=== PATIENT | female | born 1930 | race Caucasian/White ===

== ENCOUNTER 2019-06-02 05:09 | Inpatient (IN) ==
--- NOTE | 2019-05-04 12:07 | PAT Medication Instructions ---
Medication Instructions Date of Service May 04, 2019 Home Medications citalopram 10 mg PO QAM levothyroxine 50 mcg PO 3XWK levothyroxine 75 mcg PO 4XWK metoprolol succinate 25 mg PO QAM simvastatin 40 mg PO HS aspirin [Aspir-81] 81 mg PO QPM vitamins A,C,A-dcjl-ayjyah [PreserVision AREDS] 1 tab PO DAILY STOP taking 2 weeks before surgery (or as soon as possible if surgery is within 2 weeks) vitamins A,C,C-crjl-cojlpi [PreserVision AREDS] 1 tab PO DAILY Take morning of surgery With a small sip of water, OTHERWISE NOTHING TO EAT OR DRINK AFTER MIDNIGHT: citalopram 10 mg PO QAM levothyroxine metoprolol succinate 25 mg PO QAM Take evening before surgery simvastatin 40 mg PO HS aspirin [Aspir-81] 81 mg PO QPM Other Notes If you have any questions please call us at [phone] or [phone] or [phone] or [phone]
--- NOTE | 2019-05-05 15:00 | Anesthesiology Consultation ---
Date of Service May 05, 2019 Assessment & Plan (1) Encounter for pre-operative examination: Chart Review Chart Review: Acceptable Risk for Surgery (pending surgeon ordered pcp clearance 05/07) and Patient seen in Pre Admission Testing Teaching & Discussion Instructed NPO after midnight before surgery, except medications with 15 cc of water. Medication instructions provided according to the PAT guidelines. History Surgery Operation Date: 06/01/19 12:00 Proposed Procedures p Left Total Knee Arthroplasty - Onur Cox MD Height/Weight Height: 5 ft 1 in Weight: 73.1 kg Allergies Allergy/AdvReac Type Severity Reaction Status Date / Time No Known Allergies Allergy Verified 04/30/19 11:49 Medications Home Medications Medication Instructions Recorded Confirmed Last Taken citalopram 10 mg PO QAM 12/06/17 04/30/19 01/08/18 03:00 levothyroxine 50 mcg PO 3XWK 12/06/17 04/30/19 01/08/18 03:00 levothyroxine 75 mcg PO 4XWK 12/06/17 04/30/19 01/07/18 07:00 metoprolol succinate 25 mg PO QAM 12/06/17 04/30/19 01/08/18 03:00 simvastatin 40 mg PO HS 12/06/17 04/30/19 01/07/18 23:30 aspirin [Aspir-81] 81 mg PO QPM 04/30/19 04/30/19 Unknown vitamins A,C,D-evea-regkhm 1 tab PO DAILY 04/30/19 04/30/19 Unknown [PreserVision AREDS] Past Medical History Medical History (Updated 05/05/19 @ 15:01 by Gavin Klein) Cancer HX OF MELANOMA RIGHT ARM - RESECTED Depression Hearing deficit WEARING HEARING AIDS History of chest pain 2 YR AGO, PAIN LEFT ARM AND JAW - ED EVAL ([facility]) - MEDICAL STRESS - NO FINDINGS. DENIES ANY CP SINCE. Hyperlipidemia Hypertension Hypothyroidism Osteoarthritis Exercise / Class Metabolic Activity II 4-5 Yardwork/Stairs/Walk up hill (Does 1 FOS daily, no CP or SOB.) Past Surgical History Surgical History (Updated 05/05/19 @ 15:02 by Gavin Klein) History of cataract surgery BILATERAL History of colonoscopy X3 History of hysterectomy History of thyroidectomy, subtotal LEFT SIDE Hx of thyroid nodule SURGICALLY REMOVED Nausea and vomiting after administration of anesthetic agent S/P carpal tunnel release HX OF : LEFT Status post right knee replacement [facility] Past Anesthesia History No Hx of Anesthesia Complications and No Family Hx of Anesthesia Complications (daughter ROSALVA) History of PONV No Hx of Motion Sickness and History of PONV (many years ago, not with more recent) Social History Smoking Status: Never smoker Do You Dip or Chew Tobacco: No Hx Alcohol Use: No Hx Substance Use: No substance use type: does not use Review of Systems Pt denies any recent chest pain, shortness of breath, palpitations, cough, fever or URI. Physical Exam Vital Signs BP: 178/88, rpt with smaller cuff 191/95. Pt is very anxious. Rpt manual 5mins later 158/68. P: 93bpm SPO2: 97% RA T: 98.0 F R: 16 ENMT Mouth: + small oral opening; no dental restorations, no chipped teeth and no loose teeth Thyromental Distance: < 3.5 Finger Breadths (2.5) Mallampati Class: IV Neck normal visual inspection; neck extension not limited Respiratory normal respiratory effort Auscultation: lungs clear to auscultation bilaterally Cardiovascular Rate/Rhythm: regular rate and regular rhythm Heart Sounds: + murmur (I/ systolic) Testing Laboratory Results 05/05/19 15:20 05/05/19 15:20 PT 10.6 Seconds (9.0-12.0) 05/05/19 15:20 INR 1.0 (0.9-1.1) 05/05/19 15:20 APTT 27.3 Seconds (21.0-31.0) 05/05/19 15:20 Hemoglobin A1c 5.7 % (4.5-5.6) H 05/05/19 15:20 Urine Color Yellow 05/05/19 15:20 Urine Appearance Cloudy (Clear) A 05/05/19 15:20 Urine pH 6.0 (4.5-7.5) 05/05/19 15:20 Ur Specific [place] 1.013 (1.000-1.030) 05/05/19 15:20 Urine Protein Negative (Negative) 05/05/19 15:20 Urine Glucose (UA) Negative (Negative) 05/05/19 15:20 Urine Ketones Negative (Negative) 05/05/19 15:20 Urine Nitrite Negative (Negative) 05/05/19 15:20 Ur Leukocyte Esterase 3+ (Negative) H 05/05/19 15:20 Urine WBC (Auto) >30 /hpf (0-5) H 05/05/19 15:20 Urine RBC (Auto) 5-10 /hpf (0-4) H 05/05/19 15:20 U Hyaline Cast (Auto) 1-5 /lpf (0-5) 05/05/19 15:20 U Epithel Cells (Auto) 20-30 /lpf (0-5) H 05/05/19 15:20 Urine Bacteria (Auto) Negative (Negative) 05/05/19 15:20 Blood Type B Negative 05/05/19 15:20 Antibody Screen NEGATIVE 05/05/19 15:20 05/05/19 15:20 Urine Culture - Preliminary Urine,Clean Catch Pin-point growth present, reincubating. Electrocardiogram Findings: + NSR @ (66bpm) LAFB. No significant change from 12/10/17 EKG. Chest X-Ray Date: 05/05/19 Findings: + NAD Cardiomegaly.
[2019-05-05 15:45] LABS: Basophils # (auto) 0.04 K/uL (0-0.2); Basophils % (auto) 0.9 %; Eosinophils # (auto) 0.16 K/uL (0-0.5); Eosinophils % (auto) 3.4 %; Hematocrit (blood only) 42.7 % (37-47); Hemoglobin 14.1 g/dL (12.0-16.0); Immature Granulocytes # (auto) 0.01 K/uL (0.00-0.02); Immature Granulocytes % (auto) 0.2 %; Lymphocytes # (auto) 0.96 K/uL (1.2-3.4); Lymphocytes % (auto) 20.6 %; Mean Corpuscular Hemoglobin 30.5 pg (25-34); Mean Corpuscular Volume 92.2 fL (80-100); Mean Platelet Volume 11.3 fL (7.4-10.4); Monocytes # (auto) 0.39 K/uL (0.11-0.59); Monocytes % (auto) 8.4 %; Neutrophils % (auto) 66.5 %; Platelet Count 182 K/uL (130-400); RDW Coefficient of Variation 12.7 % (11.5-14.5); RDW Standard Deviation 42.4 fL (36.4-46.3); Red Blood Count 4.63 M/uL (4.2-5.4); White Blood Count 4.66 K/uL (4.8-10.8)
--- NOTE | 2019-05-05 15:46 | XRay Report ---
TWO VIEW CHEST CLINICAL HISTORY: Preoperative examination. FINDINGS: PA and lateral chest radiographs are compared to study dated 12/10/2017. The heart is enlarg ed noting atherosclerotic calcification of the thoracic aorta. The pulmonary vasculature is nonconges layo. Chronic interstitial thickening is similar to previous. No airspace consolidation or pleural eff usion is identified. There is no pneumothorax. The skeletal structures are osteopenic. The bony thora x appears intact. Degenerative change is noted in the lower cervical and thoracic spine. IMPRESSION: Cardiomegaly with no active disease in the chest. ACT 112: Negative or not required by law. Electronically signed by: Lane Machado M.D. 05/05/2019 3:45 PM
[2019-05-05 16:06] LABS: Albumin Level 3.7 gm/dl (3.4-5.0); BUN Creatinine Ratio 13.7 (10-20); Calcium 9.1 mg/dl (8.5-10.1); Creatinine Clr Calc Pharmacy 37.8 ml/min; Est GFR (African American) 61.6; Est GFR (Non-African American) 53.2; Potassium 4.1 mmol/L (3.5-5.1)
[2019-05-05 16:07] LABS: Partial Thromboplastin Time 27.3 Seconds (21.0-31.0); Prothrombin Time 10.6 Seconds (9.0-12.0)
[2019-05-05 16:38] LABS: Appearance Urine Cloudy (Clear); Bacteria Urine Automated Negative (Negative); Bilirubin Urine Negative (Negative); Blood Urine Trace (Negative); Color Urine Yellow; Epithelial Cell Urine Auto 20-30 /lpf (0-5); Glucose Urine UA Negative (Negative); Ketones Urine Negative (Negative); Leukocyte Esterase Urine 3+ (Negative); Nitrite Urine Negative (Negative); Protein Urine Negative (Negative); Specific Gravity Urine 1.013 (1.000-1.030); Urobilinogen Urine Negative (Negative); WBC Urine Automated >30 /hpf (0-5)
--- NOTE | 2019-05-05 22:17 | Electrocardiogram Report ---
Test Reason : Blood Pressure : / mmHG Vent. Rate : 066 BPM Atrial Rate : 066 BPM P-R Int : 204 ms QRS Dur : 108 ms QT Int : 438 ms P-R-T Axes : 086 -60 072 degrees QTc Int : 459 ms Normal sinus rhythm Left anterior fascicular block Abnormal ECG When compared with ECG of 10-DEC-2017 13:03, No significant change was found Confirmed by Fabrizio Jackson ([id number]) on 05/05/2019 10:17:41 PM Referred By: Onur Cox Confirmed By:Fabrizio Jackson
[2019-05-06 06:24] LABS: Estimated Average Glucose 117 mg/dl; Hemoglobin A1C 5.7 % (4.5-5.6)
--- NOTE | 2019-06-01 18:52 | History and Physical Report ---
DATE OF ADMISSION: 06/02/2019 CHIEF COMPLAINT: Chronic left knee pain. HISTORY OF PRESENT ILLNESS: This is an 88-year-old female patient of Dr. Cox'mirna complaining of chronic left knee pain, longstanding, now progressively getting worse. The patient has failed conservative treatment including intra-articular injections, anti-inflammatories, home exercise program and the use of a wrap. The patient has increased pain with weightbearing activities and her pain does interfere with her activities of daily living. The patient has been diagnosed with end-stage osteoarthritis per clinical and radiographic exams and wishes to proceed with an elective left total knee arthroplasty. PAST MEDICAL HISTORY: Hypertension, hypercholesterolemia, hypothyroidism, osteoarthritis, sciatica, history of melanoma. SOCIAL HISTORY: Nonsmoker, nondrinker. PAST SURGICAL HISTORY: Partial hysterectomy, thyroid nodules, thyroidectomy, carpal tunnel. FAMILY HISTORY: Noncontributory. REVIEW OF SYSTEMS: The patient complains of chronic left knee pain, otherwise denies any shortness of breath, chest pain, nausea, vomiting or any other joint complaints. MEDICATIONS: Aspirin 81 mg daily, levothyroxine 50 mcg daily, simvastatin 40 mg daily, levothyroxine, again 75 mcg 4 times weekly, metoprolol 25 mg daily, Lexapro 10 mg daily, PreserVision daily. ALLERGIES: No known drug allergies. PHYSICAL EXAMINATION: GENERAL: Well-developed, well-nourished 88-year-old female in no acute distress. She is alert and oriented x3 and pleasant. HEENT: Normocephalic, atraumatic. Extraocular motions are intact. Pupils equal, reactive to light. HEART: Regular rate and rhythm, no murmurs. LUNGS: Clear. ABDOMEN: Soft, nontender, bowel sounds present. EXTREMITIES: Left knee limited range of motion of 0-125. Mild effusion. Medial joint line tenderness, varus deformity, crepitation with passive range of motion, 5/5 strength. NEUROLOGIC: Neurovascularly, she is intact in her left lower extremity. DIAGNOSES: Left knee end-stage osteoarthritis, hypertension, hypercholesterolemia, hypothyroidism, osteoarthritis, sciatica, history of melanoma. PLAN: The patient was advised of her diagnosis. Indications, risks, benefits, postop course have all been reviewed. The patient wished to proceed with a left total knee arthroplasty. Necessary consent forms, preoperative testing and clearances will be obtained.
[~2019-06-02 05:09] MED LIST: ACETAMINOPHEN 500 MG TAB PO SCH; CEFAZOLIN 1000MG 1,000 MG/7.5 ML SYR IV SCH; CeleBREX 200 MG CAP PO SCH; FAMOTIDINE 20 MG TAB PO SCH; GABAPENTIN 300 MG CAP PO SCH; LR 500ML BOLUS, THEN 15ML/HR IV SCH; METOCLOPRAMIDE HCL 10 MG TABLET PO SCH; ROPIVACAINE 0.5% HCL/PF 150 MG, BUPIVACAINE 0.5% MPF 30 ML, EPINEPHrine 30MG/30ML (OR U... INSTIL SCH; TRANEXAMIC ACID 1,000 MG **IV Intra-op IV SCH; TRANEXAMIC ACID 1,000 MG **IV Pre-op IV SCH; dexAMETHasone 4 MG TAB PO SCH
[2019-06-02] MEDS ORDERED: dexAMETHasone 4 MG TAB PO SCH (06:00)
[2019-06-02] MEDS ORDERED: LR 500ML BOLUS, THEN 15ML/HR IV SCH (06:00)
[2019-06-02] MEDS ORDERED: TRANEXAMIC ACID 1,000 MG **IV Intra-op IV SCH (06:00)
[2019-06-02] MEDS ORDERED: ROPIVACAINE 0.5% HCL/PF 150 MG, BUPIVACAINE 0.5% MPF 30 ML, EPINEPHrine 30MG/30ML (OR U... INSTIL SCH (06:00)
[2019-06-02] MEDS ORDERED: METOCLOPRAMIDE HCL 10 MG TABLET PO SCH (06:00)
[2019-06-02] MEDS ORDERED: TRANEXAMIC ACID 1,000 MG **IV Pre-op IV SCH (06:00)
[2019-06-02] MEDS ORDERED: ACETAMINOPHEN 500 MG TAB PO SCH (06:00)
[2019-06-02] MEDS ORDERED: CEFAZOLIN 1000MG 1,000 MG/7.5 ML SYR IV SCH (06:00)
[2019-06-02] MEDS ORDERED: FAMOTIDINE 20 MG TAB PO SCH (06:00)
[2019-06-02] MEDS ORDERED: GABAPENTIN 300 MG CAP PO SCH (06:00)
[2019-06-02] MEDS ORDERED: CeleBREX 200 MG CAP PO SCH (06:00)
[2019-06-02] MEDS ORDERED: MIDAZOLAM HCL 1 MG/ML 2ML VIAL ONE (06:56)
[2019-06-02] MEDS ORDERED: fentaNYL citrate 100 MCG/2 ML VIAL ONE (06:56)
[2019-06-02] MEDS ORDERED: ATROPINE SULFATE 0.1 MG/ML 10ML SYR IV PRN (07:03)
[2019-06-02] MEDS ORDERED: ePHEDrine sulfate 50 MG/ML AMP IV PRN (07:03)
[2019-06-02] MEDS ORDERED: fentaNYL citrate 100 MCG/2 ML VIAL IV PRN (07:03)
[2019-06-02] MEDS ORDERED: ONDANSETRON INJ 2 MG/ML 2 ML VIAL IV PRN ×2 (07:03→10:51)
--- NOTE | 2019-06-02 07:11 | History & Physical Bridge Note ---
Date of Service June 02, 2019 History & Physical Bridge Note I have examined the patient, reviewed the History & Physical and in the interval since the performance of the History & Physical I have noted the following changes of clinical significance: no changes noted
[2019-06-02] MEDS ORDERED: ORTHO JOINT ANESTHETIC ONE (07:13)
[2019-06-02] MEDS ORDERED: BACITRACIN INJ 50,000 UNIT VIAL ONE (07:14)
[2019-06-02] MEDS ORDERED: ROPIVACAINE 0.5% 5 MG/ML 30 ML VIAL ONE (07:47)
[2019-06-02] MEDS ORDERED: BUPIVACAINE 0.5 % 5 MG/1 ML PF 10ML VIAL ONE (07:47)
--- NOTE | 2019-06-02 09:07 | Operative Report ---
Post Operative Report Pre & Post Diagnosis Operation Date: 06/02/19 07:15 Pre-Op Diagnosis: LEFT KNEE OSTEOARTHRITIS Post-Op Diagnosis: LEFT KNEE OSTEOARTHRITIS I identified the patient and participated in the time-out.: Yes Procedure Operation Date: 06/02/19 07:15 Actual Procedures p Left Total Knee Arthroplasty(Left) - Onur Cox MD Surgeon Onur Cox MD Deburrer Machine Inocencio KIRKLAND Estimated Blood Loss 5 Findings Consistent with Post-Op Diagnosis Specimens Bone cuts Drains 2 Hemovac Anesthesia Type MAC Spinal Regional Complications none Disposition Accompanied Patient To Recovery: No Disposition: Recovery Room Indications 88-year-old female with progressive pain disability due to osteoarthritis her left knee. She had a right knee replaced in the past with good result. Patient is failed conservative management with regard to left knee. Proceed with left knee replacement. Description of Procedure The patient was taken to the operating room and anesthetized under spinal MAC regional. Patient was placed supine on the the operating table. A pneumatic tourniquet was placed about the left upper thigh. The knee exam demonstrated 10 through 115 degrees range of motion stiff knee tight varus medial compartment. The involved leg was elevated exsanguinated with Esmarch bandage and the pneumatic tourniquet was raised to 300 millimeters mercury. A longitudinal incision was made across the anterior knee. Skin flaps were elevated. An incision was made into the medial retinaculum and extended up into the mid third of the quadriceps tendon and extended down to the tibial tubercle. Intra- articular findings demonstrated patellofemoral medial compartment OA [id number] medial compartment. The knee was exposed by excising cruciate ligaments and menisci. The infrapatellar fat pad was resected. The fat pad over the anterior femur at the upper aspect of the articular surface was resected for placement of the component in that area. A subperiosteal peel lateral release was performed around the patella The [employer] journey 2.0 posterior stabilized total knee arthroplasty system was utilized for the procedure. The custom femoral cutting guide was pinned in position. The distal femoral cut was made. The size 4, 5 in 1 cutting block was placed. The anterior posterior and chamfer cuts were made. The knee was extended and a free hand cut technique was performed to the patella. The patella with was measured and the width was reproduced using a 32 symmetrical patella component. 3 drill holes are made for the patella component pegs. The tibia was then subluxed. The custom tibial cutting block was pinned in position and the proximal tibial cut was made with the oscillating saw. Ligaments were balanced requiring medial posterior medial release and pie crusting MCL. The size 2 tibial trial was externally rotated in line with the tibial tubercle and pinned in position. The punch for the stem was used. The femoral trial was inserted and centered the notch cutting devices were used and the collet was placed. Tibial trials were used for the insert. The size 12 trial gave balanced ligaments through full range of motion. Patella tracking was assessed with range of motion. The patella tracked centrally. The trials were removed. The Orthomix anesthetic cocktail was injected per protocol. The cut bone surfaces and soft tissue were copiously irrigated with antibiotic solution with bacitracin. The final components were cemented with Simplex cement. The final components were [employer] journey 2.0 left size 4 posterior stabilized femoral component, 2 tibial baseplate, 12 posterior stabilized polyethylene insert, 32 symmetrical patella.. While the cement cured the Betadine soak was used per protocol. When the cement cured the knee was copiously irrigated with pulsatile lavage antibiotic solution with bacitracin. 2 drains were brought out laterally connected to Hemovac. The quadriceps tendon and medial retinaculum were closed with interrupted [id number] #1 Vicryl sutures. The knee was taken through full range of motion and repair was secure. The subcutaneous tissues were closed with 2-0 Vicryl sutures. The skin was closed with nina. A sterile dressing was applied. The tourniquet was let down and the patient had good capillary refill to the extremity. The patient tolerated the procedure well. My physician assistant film editor Inocencio KIRKLAND assisted in the procedure including prepping draping leg positioning soft tissue retraction instrument management and assisted in the closure ,dressings application and will participate in postoperative care the patient. I attest to the content of the Intraoperative Record and any orders documented therein. Any exceptions are noted below.
[2019-06-02] MEDS ORDERED: PROPOFOL IV EMULSION 10 MG/ML 20 ML VIAL IV ONE (09:35)
[2019-06-02] MEDS ORDERED: LIDOCAINE HCL 2% 2 ML VIAL/AMP(20MG/ML) INFIL ONE (09:35)
--- NOTE | 2019-06-02 09:58 | Anesthesiology Progress Note ---
Date of Service June 02, 2019 Anesthesia Post Procedure Vital Signs Vital Signs: Temp Pulse Pulse Resp BP Pulse Ox 06/02/19 09:50 68 16 190/79 H 99 06/02/19 09:40 71 16 163/74 H 100 06/02/19 09:31 37.0 C 75 16 173/70 H 99 06/02/19 06:04 37 C 52 L 18 214/92 H 98 Transfer of Care Handoff Completed per policy Notes Mental Status: alert / awake / arousable Patient Amnestic to Procedure: Yes Nausea / Vomiting: adequately controlled Pain: adequately controlled Airway Patency, RR, SpO2: stable & adequate BP & HR: stable & adequate Hydration State: stable & adequate Neuraxial Anesthesia: was administered and sensory block is resolving Anesthetic Complications: no major complications apparent
--- NOTE | 2019-06-02 10:08 | XRay Report ---
XR knee LT 1 or 2V routine CLINICAL HISTORY: Surgical Post Op COMPARISON: None. DISCUSSION: Anatomic alignment posttotal left knee arthroplasty. Could contact between prosthetic and underlying bone. Surgical drains are in position. IMPRESSION: Anatomic alignment posttotal left knee arthroplasty. ACT 112: Negative or not required by law. The above report was generated using voice recognition software. It may contain grammatical, syntax or spelling errors. Electronically signed by: Edson Yee M.D. 06/02/2019 10:07 AM
[2019-06-02] MEDS ORDERED: NALOXONE HCL 0.4 MG/1 ML VIAL/CARP IV PRN (10:51)
[2019-06-02] MEDS ORDERED: HYDROmorphone INJ 0.5 MG/0.5 ML SYR IV PRN (10:51)
[2019-06-02] MEDS ORDERED: MAGNESIUM HYDROXIDE SUSP 30 ML UDC PO PRN (10:51)
[2019-06-02] MEDS ORDERED: bisacodyL 10 MG SUPP PR PRN (10:51)
[2019-06-02] MEDS: LEVOTHYROXINE SODIUM 75 MCG TABLET PO SCH (11:23)
[2019-06-02] MEDS: SODIUM CHLORIDE 0.9% 1000ML 1,000 ML IV SCH ×2 (11:23→22:12)
--- NOTE | 2019-06-02 12:58 | Hospitalist Consultation ---
Date of Consultation June 02, 2019 Assessment & Plan (1) Left knee DJD: S/p left knee TKA with Dr. Cox on 06/01. - No surgical complications. EBL was only 5 mL per operative note. Continue iron supplement. - Monitor hgb, pt at risk for acute blood loss anemia. - Post-operative care per primary team (2) Hypertension: On metoprolol at home. BP is 165/55 post-operatively. - Continue beta-vinayak - Monitor (3) Hypothyroidism: No TSH in our system; however, no indication of hypo-/hyperthyroidism. - Continue home levothyroxine (4) DVT prophylaxis: ASA 81mg PO BID per primary team History of Present Illness Attending Physician: Onur Cox MD History of Present Illness 88yo F w/ hx of HTN, hypothyroidism, & depression who presents as a medical consult after left knee TKA with Dr. Cox on 06/01. Overall, the patient is very drowsy from her anesthesia at this point. She is in no acute pain and denies shortness of breath. Surgery was uncomplicated per notes. Reports no fevers/chills, chest pain, shortness of breath, abdominal pain, nausea, or vomiting. Allergies Allergy/AdvReac Type Severity Reaction Status Date / Time No Known Allergies Allergy Verified 06/02/19 05:40 Home Medications Home Medications Medication Instructions Recorded Confirmed Type citalopram 10 mg PO QAM 12/06/17 06/02/19 History levothyroxine 50 mcg PO 3XWK 12/06/17 06/02/19 History levothyroxine 75 mcg PO 4XWK 12/06/17 06/02/19 History metoprolol succinate 25 mg PO QAM 12/06/17 06/02/19 History simvastatin 40 mg PO HS 12/06/17 06/02/19 History aspirin [Aspir-81] 81 mg PO QPM 04/30/19 06/02/19 History vitamins A,C,N-lojs-ihsmqg 1 tab PO DAILY 04/30/19 06/02/19 History [PreserVision AREDS] Patient History Medical History Cancer HX OF MELANOMA RIGHT ARM - RESECTED Depression Hearing deficit WEARING HEARING AIDS History of chest pain 2 YR AGO, PAIN LEFT ARM AND JAW - ED EVAL ([facility]) - MEDICAL STRESS - NO FINDINGS. DENIES ANY CP SINCE. Hyperlipidemia Hypertension Hypothyroidism Osteoarthritis Surgical History History of cataract surgery BILATERAL History of colonoscopy X3 History of hysterectomy History of thyroidectomy, subtotal LEFT SIDE Hx of thyroid nodule SURGICALLY REMOVED Nausea and vomiting after administration of anesthetic agent S/P carpal tunnel release HX OF : LEFT Status post right knee replacement [facility] Family History Mother Family history of diabetes mellitus Social History Preferred Language: [place] Verde[place] Communication Ability: Effective Clinical Research Tech Required: No Beliefs That Will Affect Care: None marital status: / Current Living Situation: Alone Other Information That Helps Us Care for You: No Feels Safe at Home: Yes Smoking Status: Never smoker Do You Dip or Chew Tobacco: No ; Hx Alcohol Use: No Hx Substance Use: No Review of Systems Review of Systems: All systems reviewed & are unremarkable except as noted in HPI & below Physical Exam Constitutional: WD/WN, vitals as above Eyes: EOM intact bilaterally; no conjunctival abnormality ENMT: external ear and nose normal, oropharynx normal Neck: trachea midline, no thyromegaly normal visual inspection Respiratory: normal respiratory effort, lungs clear to auscultation no respiratory distress Cardiovascular: RRR, no murmur, no edema Gastrointestinal (Abdomen): Inspection/Auscultation: abdomen normal to inspection; abdomen not distended Musculoskeletal: no cyanosis or clubbing, extremities motor strength 5/5 E xtremities: + extremities abnormal to inspection (Left knee bandage) Skin: no rashes, warm and dry Neurologic: moves all extremities and awake Psychiatric: Orientation: alert, oriented to person and cooperative Results & Data ([facility]) Vital Signs (Past 12 Hours) Vital Signs Temp Pulse Pulse Pulse Resp BP Pulse Ox 06/02/19 12:43 36.1 C L 65 16 164/55 H 99 06/02/19 11:42 62 16 154/70 H 98 06/02/19 11:08 65 16 150/73 H 97 06/02/19 10:40 36.4 C L 69 16 171/75 H 95 06/02/19 10:20 36.4 C L 67 15 188/77 H 99 06/02/19 10:10 68 16 186/78 H 98 06/02/19 10:00 70 16 188/74 H 99 06/02/19 09:50 68 16 190/79 H 99 06/02/19 09:40 71 16 163/74 H 100 06/02/19 09:31 37.0 C 75 16 173/70 H 99 06/02/19 06:04 37 C 52 L 18 214/92 H 98 PG Care Time/CCT Total # of Minutes Spent Total Time Spent with Patient: Total time spent is greater than 50% in coordination of care (as documented) at patient's floor/unit and/or counseling patient: Coding Level of Care Code 21900 Inpt Consult Level 3 Diagnoses Left knee DJD M17.12 Hypertension I10 Hypothyroidism E03.9 DVT prophylaxis Z29.9
[2019-06-02] MEDS: ACETAMINOPHEN 500 MG TAB PO SCH ×2 (13:10→21:44)
[2019-06-02] MEDS: CEFAZOLIN 2000MG 2,000 MG/15 ML SYR IV SCH ×2 (15:35→23:58)
[2019-06-02] MEDS: FERROUS GLUCONATE 324 MG TAB PO SCH (17:48)
[2019-06-02] MEDS ORDERED: SIMVASTATIN 40 MG TAB PO SCH (21:00)
[2019-06-02] MEDS: SENNA 8.6 MG TAB PO SCH (21:43)
[2019-06-02] MEDS: DOCUSATE SODIUM 100 MG CAP PO SCH (21:44)
[2019-06-02] MEDS: ASPIRIN 81 MG ECTAB PO SCH (21:44)
[2019-06-03] MEDS: METOPROLOL SUCC 25MG EXT REL TAB PO SCH (03:02)
[2019-06-03] MEDS: ACETAMINOPHEN 500 MG TAB PO SCH ×3 (05:06→21:22)
[2019-06-03] MEDS: LEVOTHYROXINE SODIUM 50 MCG TABLET PO SCH (05:07)
[2019-06-03 05:47] LABS: Hemoglobin 12.7 g/dL (12.0-16.0); Mean Corpuscular Hemoglobin 30.5 pg (25-34); Mean Corpuscular Hgb Conc 33.4 g/dL (32-36); Mean Corpuscular Volume 91.1 fL (80-100); Mean Platelet Volume 11.6 fL (7.4-10.4); Platelet Count 172 K/uL (130-400); RDW Coefficient of Variation 12.8 % (11.5-14.5); RDW Standard Deviation 42.1 fL (36.4-46.3); Red Blood Count 4.17 M/uL (4.2-5.4); White Blood Count 11.72 K/uL (4.8-10.8)
[2019-06-03 06:17] LABS: BUN Creatinine Ratio 19.3 (10-20); Creatinine Clr Calc Pharmacy 33.4 ml/min; Est GFR (African American) 52.9; Est GFR (Non-African American) 45.6; Potassium 3.8 mmol/L (3.5-5.1)
[2019-06-03] MEDS: HydrALAZINE HCL 20 MG/ML VIAL IV PRN (08:17)
[2019-06-03] MEDS: FERROUS GLUCONATE 324 MG TAB PO SCH ×2 (08:54→17:55)
[2019-06-03] MEDS: CITALOPRAM 20 MG TAB PO SCH (08:54)
[2019-06-03] MEDS: MULTIVITAMIN TAB PO SCH (08:54)
[2019-06-03] MEDS: ASPIRIN 81 MG ECTAB PO SCH ×2 (08:54→20:18)
[2019-06-03] MEDS: DOCUSATE SODIUM 100 MG CAP PO SCH ×2 (09:45→20:19)
--- NOTE | 2019-06-03 09:55 | Orthopedic Progress Note ---
Date of Service June 03, 2019 Assessment & Plan (1) Left knee DJD: Postop day 1 status post left total knee arthroplasty. PT/OT protocols. Weightbearing as tolerated. DVT prophylaxis with aspirin p.o. twice daily, SCDs To new current pain regimen. Discharge planning-patient is planning on going to [facility] swing bed unit for physical therapy. Discussed with case management. Patient will need a 3 night stay. Plan for discharge on Saturday. Admission and Anticipated Discharge Date Admission Date: June 02, 2019 Subjective Patient sitting up in her chair at the bedside. She feels well today and is anxious to start her PT. She is having some mild pain over the anterolateral aspect of her thigh near where the drain is likely located. No other complaints. Denies shortness of breath, chest pain, lightheadedness. Physical Exam Physical Exam: Dressings are clean, dry, and intact. Calves are soft nontender. Neurovascular is intact. She has good dorsiflexion and plantarflexion of her left foot. Hemovac drainage was 125 mL from the previous shift. Results & Data ([facility]) Vital Signs (Past 12 Hours) Vital Signs Temp Pulse Resp BP BP Pulse Ox 06/03/19 09:19 157/55 H 06/03/19 07:50 36.8 C 58 L 18 202/67 H 95 06/03/19 05:50 189/71 H 06/03/19 02:42 36.6 C 58 L 18 189/70 H 95 06/02/19 23:04 36.8 C 67 18 171/73 H 95 Laboratory Results Laboratory Results WBC 11.72 K/uL (4.8-10.8) H 06/03/19 05:00 RBC 4.17 M/uL (4.2-5.4) L 06/03/19 05:00 Hgb 12.7 g/dL (12.0-16.0) 06/03/19 05:00 Hct 38.0 % (37-47) 06/03/19 05:00 MCV 91.1 fL (80-100) 06/03/19 05:00 MCH 30.5 pg (25-34) 06/03/19 05:00 MCHC 33.4 g/dL (32-36) 06/03/19 05:00 RDW Std Deviation 42.1 fL (36.4-46.3) 06/03/19 05:00 RDW Coeff of Viktor 12.8 % (11.5-14.5) 06/03/19 05:00 Plt Count 172 K/uL (130-400) 06/03/19 05:00 MPV 11.6 fL (7.4-10.4) H 06/03/19 05:00 Immature Gran % (Auto) 0.2 % 05/05/19 15:20 Neut % (Auto) 66.5 % 05/05/19 15:20 Lymph % (Auto) 20.6 % 05/05/19 15:20 [place] % (Auto) 8.4 % 05/05/19 15:20 Eos % (Auto) 3.4 % 05/05/19 15:20 Baso % (Auto) 0.9 % 05/05/19 15:20 Immature Gran # (Auto) 0.01 K/uL (0.00-0.02) 05/05/19 15:20 Neut # (Auto) 3.10 K/uL (1.4-6.5) 05/05/19 15:20 Lymph # (Auto) 0.96 K/uL (1.2-3.4) L 05/05/19 15:20 [place] # (Auto) 0.39 K/uL (0.11-0.59) 05/05/19 15:20 Eos # (Auto) 0.16 K/uL (0-0.5) 05/05/19 15:20 Baso # (Auto) 0.04 K/uL (0-0.2) 05/05/19 15:20 PT 10.6 Seconds (9.0-12.0) 05/05/19 15:20 INR 1.0 (0.9-1.1) 05/05/19 15:20 APTT 27.3 Seconds (21.0-31.0) 05/05/19 15:20 PTT Ratio 1.0 05/05/19 15:20 Sodium 140 mmol/L (136-145) 06/03/19 05:00 Potassium 3.8 mmol/L (3.5-5.1) 06/03/19 05:00 Chloride 108 mmol/L (98-107) H 06/03/19 05:00 Carbon Dioxide 26 mmol/L (21-32) 06/03/19 05:00 Anion Gap 6.0 (3-11) 06/03/19 05:00 BUN 21 mg/dl (7-18) H 06/03/19 05:00 Creatinine 1.09 mg/dl (0.6-1.2) 06/03/19 05:00 Est Cr Clr Drug Dosing 33.4 ml/min 06/03/19 05:00 Est GFR ( Amer) 52.9 06/03/19 05:00 Est GFR (Non-Af Amer) 45.6 06/03/19 05:00 BUN/Creatinine Ratio 19.3 (10-20) 06/03/19 05:00 Glucose 152 mg/dl (70-99) H 06/03/19 05:00 Estimat Average Glucose 117 mg/dl 05/05/19 15:20 Hemoglobin A1c 5.7 % (4.5-5.6) H 05/05/19 15:20 Calcium 9.0 mg/dl (8.5-10.1) 06/03/19 05:00 Albumin 3.7 gm/dl (3.4-5.0) 05/05/19 15:20 Urine Color Yellow 05/05/19 15:20 Urine Appearance Cloudy (Clear) A 05/05/19 15:20 Urine pH 6.0 (4.5-7.5) 05/05/19 15:20 Ur Specific [place] 1.013 (1.000-1.030) 05/05/19 15:20 Urine Protein Negative (Negative) 05/05/19 15:20 Urine Glucose (UA) Negative (Negative) 05/05/19 15:20 Urine Ketones Negative (Negative) 05/05/19 15:20 Urine Blood Trace (Negative) H 05/05/19 15:20 Urine Nitrite Negative (Negative) 05/05/19 15:20 Urine Bilirubin Negative (Negative) 05/05/19 15:20 Urine Urobilinogen Negative (Negative) 05/05/19 15:20 Ur Leukocyte Esterase 3+ (Negative) H 05/05/19 15:20 Urine WBC (Auto) >30 /hpf (0-5) H 05/05/19 15:20 Urine RBC (Auto) 5-10 /hpf (0-4) H 05/05/19 15:20 U Hyaline Cast (Auto) 1-5 /lpf (0-5) 05/05/19 15:20 U Epithel Cells (Auto) 20-30 /lpf (0-5) H 05/05/19 15:20 Urine Bacteria (Auto) Negative (Negative) 05/05/19 15:20 Blood Type B Negative 05/05/19 15:20 Antibody Screen NEGATIVE 05/05/19 15:20
--- NOTE | 2019-06-03 12:56 | Anesthesiology Progress Note ---
Date of Service June 03, 2019 Anesthesia Post Procedure Vital Signs Vital Signs: Temp Pulse Pulse Resp BP BP Pulse Ox 06/03/19 11:20 37.1 C 58 L 18 176/69 H 100 06/03/19 09:19 157/55 H 06/03/19 07:50 36.8 C 58 L 18 202/67 H 95 06/03/19 05:50 189/71 H 06/03/19 02:42 36.6 C 58 L 18 189/70 H 95 06/02/19 23:04 36.8 C 67 18 171/73 H 95 06/02/19 19:06 36.7 C 53 L 16 172/68 H 94 06/02/19 14:55 36.3 C L 55 L 16 163/65 H 98 06/02/19 13:45 76 16 132/63 98 Pain Intensity Left Knee: Pain Intensity: 0 Notes Mental Status: alert / awake / arousable and participated in evaluation Patient Amnestic to Procedure: Yes Nausea / Vomiting: adequately controlled Pain: adequately controlled Airway Patency, RR, SpO2: stable & adequate Hydration State: stable & adequate Neuraxial Anesthesia: was administered and sensory block is resolving Anesthetic Complications: no major complications apparent and Pt Satisfied with anesthetic care
--- NOTE | 2019-06-03 14:56 | Hospitalist Progress Note ---
Date of Service June 03, 2019 Assessment & Plan (1) Left knee DJD: S/p left knee TKA with Dr. Cox on 06/01. - No surgical complications. EBL was only 5 mL per operative note. Continue oral iron supplement. - Post-operative care per primary team (2) Hypertension: On metoprolol at home. BP was 165/55 post-operatively. Today even higher. - Continue beta-vinayak - Added amlodipine 2.5mg PO HS - Hydralazine PRN (3) Hypothyroidism: No TSH in our system; however, no indication of hypo-/hyperthyroidism. - Continue home levothyroxine (4) DVT prophylaxis: ASA 81mg PO BID per primary team Admission and Anticipated Discharge Date Admission Date: June 02, 2019 Subjective Feels well overall. No significant knee pain. Concerned about her high blood pressure. Reports no fevers/chills, chest pain, shortness of breath, abdominal pain, nausea, or vomiting. Physical Exam Constitutional: WD/WN, vitals as above Eyes: EOM intact bilaterally; no conjunctival abnormality ENMT: external ear and nose normal, oropharynx normal Neck: trachea midline, no thyromegaly normal visual inspection Respiratory: normal respiratory effort, lungs clear to auscultation no respiratory distress Cardiovascular: RRR, no murmur, no edema Gastrointestinal (Abdomen): Inspection/Auscultation: abdomen normal to inspection; abdomen not distended Musculoskeletal: no cyanosis or clubbing, extremities motor strength 5/5 Extremities: + extremities abnormal to inspection (Left knee bandage) Skin: no rashes, warm and dry Neurologic: moves all extremities and awake Psychiatric: Orientation: alert, oriented to person and cooperative Results & Data ([facility]) Vital Signs (Past 12 Hours) Vital Signs Temp Pulse Resp BP BP Pulse Ox 06/03/19 11:20 37.1 C 58 L 18 176/69 H 100 06/03/19 09:19 157/55 H 06/03/19 07:50 36.8 C 58 L 18 202/67 H 95 06/03/19 05:50 189/71 H PG Care Time/CCT Total # of Minutes Spent Total Time Spent with Patient: Total time spent is greater than 50% in coordination of care (as documented) at patient's floor/unit and/or counseling patient: Coding Level of Care Code 97292 Subseq Hosp Care Lvl 2 Diagnoses Left knee DJD M17.12 Hypertension I10 Hypothyroidism E03.9 DVT prophylaxis Z29.9
[2019-06-03] MEDS: OXYCODONE HCL IR 5 MG TAB (IMMEDIATE RELEASE) PO PRN (15:30)
[2019-06-03] MEDS: SENNA 8.6 MG TAB PO SCH (20:19)
[2019-06-03] MEDS: SIMVASTATIN 20 MG TAB PO SCH (20:19)
[2019-06-03] MEDS: AMLODIPINE BESYLATE 5 MG TAB PO SCH (20:19)
[2019-06-04] MEDS: HydrALAZINE HCL 20 MG/ML VIAL IV PRN (00:03)
[2019-06-04] MEDS: LEVOTHYROXINE SODIUM 75 MCG TABLET PO SCH (05:47)
[2019-06-04] MEDS: ACETAMINOPHEN 500 MG TAB PO SCH ×3 (05:47→22:33)
--- NOTE | 2019-06-04 08:03 | Orthopedic Progress Note ---
Date of Service June 04, 2019 Assessment & Plan (1) Left knee DJD: Postop day 2 status post left total knee arthroplasty. PT/OT protocols. Weightbearing as tolerated. DVT prophylaxis with aspirin p.o. twice daily, SCDs Continue current pain regimen. Discharge planning-patient is planning on going to [facility] swing bed unit for physical therapy. Discussed with case management. Patient will need a 3 night stay. Plan for discharge on Saturday. Admission and Anticipated Discharge Date Admission Date: June 02, 2019 Subjective POD 1 s/p Left TKA Pt lying in bed awake,and alert. Had some heartburn this AM which she attributes to taking a lot of pills this AM without a lot of food. States that it is off and on. No other complaints. Pain controlled. Denies SOB,CP, LH. Physical Exam Physical Exam: Silverlon intact. Mild knee swelling. Calves soft,NT. NV intact. Results & Data ([facility]) Vital Signs (Past 12 Hours) Vital Signs Temp Pulse Pulse Pulse Resp BP BP 06/04/19 07:06 36.7 C 59 L 16 167/73 H 06/04/19 02:34 58 L 179/71 H 06/03/19 23:45 205/72 H 06/03/19 23:21 36.7 C 52 L 18 221/78 H 226/78 H Pulse Ox 06/04/19 07:06 06/04/19 02:34 06/03/19 23:45 06/03/19 23:21 96
[2019-06-04] MEDS: METOPROLOL SUCC 25MG EXT REL TAB PO SCH (08:18)
[2019-06-04] MEDS: ASPIRIN 81 MG ECTAB PO SCH ×2 (08:19→20:34)
[2019-06-04] MEDS: MULTIVITAMIN TAB PO SCH (08:19)
[2019-06-04] MEDS: CITALOPRAM 20 MG TAB PO SCH (08:19)
[2019-06-04] MEDS: FERROUS GLUCONATE 324 MG TAB PO SCH ×2 (08:20→17:22)
[2019-06-04] MEDS: DOCUSATE SODIUM 100 MG CAP PO SCH ×2 (08:20→20:34)
--- NOTE | 2019-06-04 14:26 | Hospitalist Progress Note ---
Date of Service June 04, 2019 Assessment & Plan (1) Left knee DJD: S/p left knee TKA with Dr. Cox on 06/01. - No surgical complications. EBL was only 5 mL per operative note. Continue oral iron supplement. - Post-operative care per primary team (2) Hypertension: On metoprolol at home. BP was 165/55 post-operatively. Better today after starting amlodipine. - Continue beta-vinayak - Added amlodipine 2.5mg PO HS - Hydralazine PRN (3) Hypothyroidism: No TSH in our system; however, no indication of hypo-/hyperthyroidism. - Continue home levothyroxine (4) DVT prophylaxis: ASA 81mg PO BID per primary team Given medical stability, Hospital Medicine team will sign off. Please re-consult with any questions or concerns. Thank you for letting us assist in the care of this patient! Admission and Anticipated Discharge Date Admission Date: June 02, 2019 Subjective Some mild left knee pain. Overall, still up and walking. Drain removed which lessens the irritation of the knee. Reports no fevers/chills, chest pain, shortness of breath, abdominal pain, nausea, or vomiting. Physical Exam Constitutional: WD/WN, vitals as above Eyes: EOM intact bilaterally; no conjunctival abnormality ENMT: external ear and nose normal, oropharynx normal Neck: trachea midline, no thyromegaly normal visual inspection Respiratory: normal respiratory effort, lungs clear to auscultation no respiratory distress Cardiovascular: RRR, no murmur, no edema Gastrointestinal (Abdomen): Inspection/Auscultation: abdomen normal to inspection; abdomen not distended Musculoskeletal: no cyanosis or clubbing, extremities motor strength 5/5 Extremities: + extremities abnormal to inspection (Left knee bandage) Skin: no rashes, warm and dry Neurologic: moves all extremities and awake Psychiatric: Orientation: alert, oriented to person and cooperative Results & Data ([facility]) Vital Signs (Past 12 Hours) Vital Signs Temp Pulse Pulse Resp BP BP 06/04/19 08:20 62 06/04/19 07:06 36.7 C 59 L 16 167/73 H 06/04/19 02:34 58 L 179/71 H PG Care Time/CCT Total # of Minutes Spent Total Time Spent with Patient: Total time spent is greater than 50% in coordination of care (as documented) at patient's floor/unit and/or counseling patient: Coding Level of Care Code 13335 Subseq Hosp Care Lvl 2 Diagnoses Left knee DJD M17.12 Hypertension I10 Hypothyroidism E03.9 DVT prophylaxis Z29.9
[2019-06-04] MEDS: OXYCODONE HCL IR 5 MG TAB (IMMEDIATE RELEASE) PO PRN (19:53)
[2019-06-04] MEDS: SENNA 8.6 MG TAB PO SCH (20:33)
[2019-06-04] MEDS: SIMVASTATIN 20 MG TAB PO SCH (20:34)
[2019-06-04] MEDS: AMLODIPINE BESYLATE 5 MG TAB PO SCH (20:34)
[2019-06-05] MEDS: LEVOTHYROXINE SODIUM 50 MCG TABLET PO SCH (05:28)
[2019-06-05] MEDS: ACETAMINOPHEN 500 MG TAB PO SCH (05:28)
[2019-06-05 07:29] VITALS: TEMP 97.9; O2SAT 96
[2019-06-05] MEDS: ASPIRIN 81 MG ECTAB PO SCH (08:17)
[2019-06-05] MEDS: MULTIVITAMIN TAB PO SCH (08:18)
[2019-06-05] MEDS: DOCUSATE SODIUM 100 MG CAP PO SCH (08:18)
[2019-06-05] MEDS: FERROUS GLUCONATE 324 MG TAB PO SCH (08:18)
[2019-06-05] MEDS: CITALOPRAM 20 MG TAB PO SCH (08:18)
[2019-06-05] MEDS: METOPROLOL SUCC 25MG EXT REL TAB PO SCH (08:20)
[2019-06-05] MEDS: OXYCODONE HCL IR 5 MG TAB (IMMEDIATE RELEASE) PO PRN (08:24)
--- NOTE | 2019-06-05 10:29 | Orthopedic Progress Note ---
Date of Service June 05, 2019 Assessment & Plan (1) Left knee DJD: Postop day 3 status post left total knee arthroplasty. PT/OT protocols. Weightbearing as tolerated. DVT prophylaxis with aspirin p.o. twice daily, SCDs Continue current pain regimen. Discharge planning-[facility] swing bed unit for physical therapy. D/C today. Admission and Anticipated Discharge Date Admission Date: June 02, 2019 Subjective POD 3 s/p Left TKA Patient sitting at bedside chair. States pain is controlled. Hoping to be discharged to the [facility] swing bed today. No other complaints. Denies SOB,CP, LH. Physical Exam Constitutional: WD/WN, vitals as above no acute distress Musculoskeletal: Gait: + antalgic gait (left) Knee: + surgical incision (le ft knee: anterior incision covered with Silverlon dressing. ); knee normal to inspection, no skin erythema, no ecchymosis, no crepitation with knee ROM, no valgus alignment and no varus alignment Neurologic: normal touch/pain/proprioception Psychiatric: A+Ox3, euthymic affect Speech: normal rate/rhythm/volume of speech Results & Data ([facility]) Vital Signs (Past 12 Hours) Vital Signs Temp Pulse Pulse Pulse Resp BP BP 06/05/19 08:22 52 L 06/05/19 07:26 36.6 C 53 L 16 176/70 H 188/65 H 06/05/19 03:28 56 L 176/74 H 06/04/19 22:29 36.8 C 54 L 16 176/65 H Pulse Ox 06/05/19 08:22 06/05/19 07:26 96 06/05/19 03:28 06/04/19 22:29 97
[2019-06-05 11:12] VITALS: BP 133/70; PULSE 60
--- NOTE | 2019-06-08 12:43 | Discharge Summary (DS) ---
DISCHARGE DIAGNOSIS: Left knee osteoarthritis. SECONDARY DIAGNOSES: Hypertension, hypercholesterolemia, hypothyroidism, osteoarthritis, sciatica, history of melanoma. CONSULTS: Dr. Luis Flores. COMPLICATIONS: None. PROCEDURES: Left total knee arthroplasty performed by Dr. Cox on 06/02/2019. BRIEF HISTORY: As dictated in the history and physical. HOSPITAL SUMMARY: The patient was admitted on the above-noted date and had the above-noted surgery performed, which she tolerated well. Dr. Flores was consulted for postoperative medical management during the patient's stay. On the first postoperative day, the patient was sitting up in her chair at the bedside. She felt well and was anxious to start her PT. She was having some mild pain over the anterolateral aspect of her thigh near where the drain was located. No other complaints. Denied shortness of breath, chest pain or lightheadedness. Dressings are clean, dry and intact. Calves were soft, nontender, neurovascularly intact. She had good dorsiflexion and plantar flexion of her left foot. Hemovac drainage with 125 mL from previous shift. Vital signs were stable with some brief fluctuations of her systolic blood pressure up to 202, but had come down to 157, which were being managed by medical service. Hemoglobin was 12.7. By her second postoperative day, she was lying in bed, awake and alert. She had some heartburn in the morning, which she attributes to taking a lot of pills that morning without a lot of food. She stated that it was off and on. She had no other complaints. Pain was controlled. Denied shortness of breath, chest pain or lightheadedness. Silverlon was intact. Mild knee swelling was noted. Calves were soft, nontender, neurovascularly intact and she was continued on her protocol and continued on medical management. Decision was made to go to [facility] swing [facility] for physical therapy, and case management had been consulted and arranged for transfer. The rest of her stay was essentially uneventful. By 06/03, medicine service felt she was continued to maintain medically stable and signed off of her case. By her third postoperative day, there were no essential changes. She was sitting at the bedside chair. Pain was controlled. No other complaints. Silverlon dressing was intact. Neurovascular was intact and it was felt that she could be transferred to the [facility] bed unit for further physical therapy and care. For further review, please see chart. LABORATORY AND X-RAY DATA: As per chart. DISCHARGE INSTRUCTIONS: The patient was discharged to [facility] unit on 06/05/2019. DIET: Regular. ACTIVITY: Weightbearing as tolerated in the left lower extremity with crutches or walker. Follow TK instruction sheets and special care instructions as noted. Follow up with Dr. Cox in 2 weeks. The patient to call for appointment if one has not been made for you. Follow additional medications added by the medical service. DISCHARGE MEDICATIONS: Acetaminophen 1000 mg p.o. q.8 hours, amlodipine 2.5 mg p.o. at bedtime, aspirin 81 mg p.o. b.i.d., Colace 100 mg p.o. b.i.d., oxycodone 5-10 mg p.o. q.4 hours p.r.n., sennosides 17.2 mg at bedtime, simvastatin 20 mg at bedtime. Resume home meds as listed. Metoprolol is changed to 25 mg p.o. at bedtime. Stop taking previous aspirin and simvastatin.
== END 2019-06-05 12:51 | DRG 470 ==
LOC: ASU 05:09 → 3E 09:47